=== PATIENT | male | born 1945 | race Caucasian/White ===

== ENCOUNTER 2017-01-20 23:59 | Emergency (ER) | payer MEDICARE ==
[2017-01-21] MEDS ORDERED: OXYMETAZOLINE NASAL SPRAY 15 ML BTTL ONE (00:11)
[2017-01-21] MEDS ORDERED: NEOMYCIN-BACITRACIN-POLYMYXIN 0.9 GM UD TOP ONE ×2 (00:11→00:15)
[2017-01-21 00:25] VITALS: TEMP 98.4; O2SAT 95
--- NOTE | 2017-01-21 00:40 | ED.PDOC ---
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 SPONTANEOUS. TAKES PLAVIX FOR CARDIAC STENTS. BLED 4 D AGO BUT STOPPED. USES DAILY NASAL SALINE GEL AND HUMIDIFIER. HAD BLEED 1 YR AGO, ER USED RHINO ROCKET, REMOVED AFTER 12 HRS, REBLED THUS NEEDED TO REINSERT RHINO ROCKET. THEN SAW ENT WHO CAUTERIZED AND RECOMMENDED FUTURE RHINO ROCKETS FOR HIM TO BE KEPT IN AT LEAST 24 HRS. - History of Present Illness Timing/Duration: abrupt Severity: moderate EENT Location: nose - L NARE Prearrival Treatment: squeezing nostrils Associated Symptoms: denies symptoms Allergies/Adverse Reactions: Allergies NO KNOWN ALLERGY Allergy (Verified 01/21/17 00:25) Home Medications: Ambulatory Orders Amlodipine Besylate-Atorvastat [Amlodipine Besylate/Atorv 5-20 mg] 1 tab PO Amoxicillin & Pot Clavulanate [Augmentin] 875 mg PO BID #14 tab 05/30/15 Bilberry 05/30/15 Clopidogrel Bisulfate [Plavix] 75 mg PO QD 05/30/15 Co Q-10 05/30/15 Folate-Vitamin [id number]-[id number] F 05/30/15 Grape Seed [Grape Seed Extract] 05/30/15 Isosorbide Mononitrate [Isosorbide Mononitrate ER] 05/30/15 Levothyroxine Sodium [Levoxyl] 100 mcg PO 05/30/15 Linaclotide [Linzess] 145 mcg PO 05/30/15 Lutein 20 mg PO 05/30/15 Metoprolol Tartrate 05/30/15 Resveratrol 05/30/15 Tamsulosin [Flomax] 05/30/15 hydrALAZINE HCl [HydrALAzine HCl] 05/30/15 Review of Systems - Review of Systems Constitutional: States: no symptoms reported EENTM: Denies: ear pain, throat pain Respiratory: States: no symptoms reported Cardiology: States: no symptoms reported Gastrointestinal/Abdominal: States: no symptoms reported Genitourinary: States: no symptoms reported Musculoskeletal: States: no symptoms reported Skin: States: no symptoms reported Neurological: States: no symptoms reported, emotional problems Hematologic/Lymphatic: States: no symptoms reported All other Systems: Reviewed and Negative Past Medical History (General) - Patient Medical History Hx Cardiac Disorders: Yes - stents Hx Hypertension: Yes Hx Thyroid Disease: Yes Hx Diabetes: No Hx Cancer: No Hx Hepatitis C: No Surgical History: other - Vaccination History Hx Tetanus, Diphtheria Vaccination: Yes - 2015 Hx Influenza Vaccination: Yes Hx Pneumococcal Vaccination: Yes - Social History Hx Tobacco Use: No Hx Alcohol Use: Yes - daily Hx Substance Use: No Hx Substance Use Treatment: No Hx Depression: No Hx Physical Abuse: No Hx Emotional Abuse: No Hx Suspected Abuse: No Family Medical History - Family History Father Family History: Unknown Physical Exam - Physical Exam General Appearance: Alert, Well Nourished Eye Exam: bilateral normal Ear Exam: bilateral ear: TM normal Nasal Exam: dried blood, other - L NASAL SEPTUM (KEISSELBACH'S PLEXUS) = FRESH, DRYING BLOOD BUT NOT ACTIVELY RUNNING. R NARE NL. Throat Exam: normal mouth inspection, pharynx normal, other - NO BLOOD DOWN POSTERIOR OROPHARYNX. 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 RE-EXAMINATION SHOWED THE PREVIOUSLY WET BLOOD TO BE QUITE DRY. I APPLIED A THIN LAYER OF POLYSPORIN TO MOISTURIZE THE SEPTUM. NO BLEEDING AT PRESENT, THUS WILL OBSERVE FOR 15 MIN TO ENSURE DOES NOT RESUME. 01/21/17 00:53 NO RECURRENCE OF EPISTAXIS AFTER OBSERVATION. DC TO HOME. Departure - Departure Clinical Impression: Anterior epistaxis Disposition: Discharge to Home or Self Care Condition: Fair Departure Forms: ED Discharge - Pt. Copy, Patient Portal Self Enrollment Instructions: DI for Nosebleed Diet: resume usual diet Activity: increase activity as tolerated Home Medications: Ambulatory Orders Amlodipine Besylate-Atorvastat [Amlodipine Besylate/Atorv 5-20 mg] 1 tab PO Amoxicillin & Pot Clavulanate [Augmentin] 875 mg PO BID #14 tab 05/30/15 Bilberry 07/29/15 Clopidogrel Bisulfate [Plavix] 75 mg PO QD 05/30/15 Co Q-10 05/30/15 Folate-Vitamin V50-Pafrykhpi F 05/30/15 Grape Seed [Grape Seed Extract] 05/30/15 Isosorbide Mononitrate [Isosorbide Mononitrate ER] 05/30/15 Levothyroxine Sodium [Levoxyl] 100 mcg PO 05/30/15 Linaclotide [Linzess] 145 mcg PO 05/30/15 Lutein 20 mg PO 05/30/15 Metoprolol Tartrate 05/30/15 Resveratrol 05/30/15 Tamsulosin [Flomax] 05/30/15 hydrALAZINE HCl [HydrALAzine HCl] 05/30/15 Additional Instructions: Use Afrin (decongestant) nasal spray only for emergencies when you start bleeding, as it can become habit forming to the nose. Daily apply a thin layer of bacitracin ointment using your finger to the left septum (middle side of the nose) to keep the area moist during the winter time. Avoid blowing your nose tonight, as this can dislodge the clots and trigger the bleeding. Continue using saline nasal spray and humidifier. If the bleeding reccurs, please see your ENT or return to the ER, at which time we will insert a Rhino Rocket. Please follow-up with your regular doctor, as elevated blood pressure also triggers bleeding.
[2017-01-21 01:03] VITALS: BP 141/78
== END 2017-01-21 01:03 | disposition home or self-care (01) ==
LOC: ER 23:59
DX: R04.0 Epistaxis (principal); I10 Essential (primary) hypertension; E07.9 Disorder of thyroid, unspecified; Z98.61 Coronary angioplasty status; Z79.899 Other long term (current) drug therapy

== ENCOUNTER → 2018-01-27 | Outpatient (CLI) | payer MEDICARE | LOC: LAB.O 13:10 | PROVIDERS: ATTEND Internal Medicine Nephrology | DX: N18.3 Chronic kidney disease, stage 3 (moderate) (principal) ==

== ENCOUNTER → 2018-02-22 | Outpatient (CLI) | payer MEDICARE ==
--- NOTE | 2018-02-23 11:13 | US ---
EXAM DESCRIPTION: Carotid Duplex CLINICAL HISTORY: BRUIT OF LEFT CAROTID ARTERY COMPARISON: None Available. TECHNIQUE: Carotid Doppler ultrasound FINDINGS: Right Submitted images show no significant stenosis in the common carotid, internal carotid or external carotid arteries. Calcified plaque is seen in the right CCA with mild tortuosity. Extensive plaque of the right carotid bifurcation. Axial images show 27% area narrowing of the right ICA above the bulb. The following flow velocities were obtained: Common carotid artery peak systolic flow velocity measures 65 centimeters per second. Internal carotid artery peak systolic flow velocity measures 73 centimeters per second. External carotid artery peak systolic flow velocity measures 66 centimeters per second. Flow in the right vertebral artery is antegrade. The right internal carotid to common carotid peak systolic flow velocity ratio equals 1.1 which is normal. Left Submitted images show normal caliber of the left common carotid, internal carotid and external carotid arteries with no significant stenosis. Calcified plaque is seen at the left carotid bifurcation. Axial images show 28% area narrowing of the carotid bulb. The following flow velocities were obtained: Common carotid artery peak systolic flow velocity measures 68 centimeters per second. Internal carotid artery peak systolic flow velocity measures 63 centimeters per second. External carotid artery peak systolic flow velocity measures 82 centimeters per second. Flow in the left vertebral artery is antegrade. The left internal carotid to common carotid peak systolic flow velocity ratio of 0.9 is normal. IMPRESSION: Calcified arteriosclerotic plaque at the carotid bifurcations bilaterally. No significant elevation of flow velocities to suggest hemodynamically significant stenosis. Electronically signed by: Robby Hernandez MD 02/23/2018 11:12 AM CDT
== END ==
LOC: US 11:02
PROVIDERS: ATTEND Family Medicine Geriatric Medicine
DX: R09.89 Other specified symptoms and signs involving the circulatory and respiratory systems (principal)

== ENCOUNTER → 2018-07-19 | Outpatient (CLI) | payer MEDICARE ==
--- NOTE | 2018-07-19 11:11 | US ---
EXAM DESCRIPTION: Aorta CLINICAL HISTORY: 73 years Male, I71.4 AAA COMPARISON: None. FINDINGS: Distal aortic diameter measures 2.3 cm. Right common iliac artery measures 1.3 cm which is prominent. Left common iliac artery measures 1.2 cm. Positive color flow within the distal aorta. Mid abdominal aorta is enlarged measuring 5.2 cm in diameter consistent with an abdominal aortic aneurysm, probably infrarenal. Bowel gas obscures the upper abdominal aorta and the upper portion of the aneurysm. A transverse image shows measurements of 5.2 x 6.7 cm. This is a large aneurysm and surgical consultation is recommended. Imaging follow-up every six months is also recommended. No fluid around the aorta to suggest a leaking aneurysm. Exam was limited to the aorta and proximal common iliac arteries. IMPRESSION: Abdominal aortic aneurysm 5.2 cm in diameter. Recommend vascular consultation and imaging follow-up every 6 months. (Reference: J Vasc Surg 2009 Oct;50(4 Suppl):S2-49.) Electronically signed by: Robby Hernandez MD 07/19/2018 11:10 AM CDT
== END ==
LOC: US 09:53
PROVIDERS: ATTEND Family Medicine Geriatric Medicine
DX: I71.4 Abdominal aortic aneurysm, without rupture (principal)

== ENCOUNTER → 2018-08-13 | Outpatient (CLI) | payer MEDICARE | LOC: LAB.O 10:50 | PROVIDERS: ATTEND Internal Medicine Nephrology | DX: E11.22 Type 2 diabetes mellitus with diabetic chronic kidney disease (principal) ==

== ENCOUNTER → 2019-02-15 | Outpatient (CLI) | payer MEDICARE | LOC: GMA 10:47 | PROVIDERS: ATTEND Internal Medicine Nephrology | DX: N18.3 Chronic kidney disease, stage 3 (moderate) (principal) ==

== ENCOUNTER → 2019-03-07 | Outpatient (CLI) | payer MEDICARE | LOC: GMAM 11:41 | PROVIDERS: ATTEND Family Medicine | DX: E03.9 Hypothyroidism, unspecified (principal) ==

== ENCOUNTER → 2019-04-14 | Outpatient (CLI) | payer MEDICARE ==
--- NOTE | 2019-04-14 12:55 | US ---
EXAM DESCRIPTION: Carotid Duplex: ULTRASOUND. CLINICAL HISTORY: 74 years Male CAROTID BRUIT COMPARISON: Ultrasound carotid duplex 02/22/2018.. TECHNIQUE: Transcutaneous scanning utilizing acstillo-scale and Doppler modes to evaluate the bilateral carotid systems and vertebral arteries. Percentage of diameter of stenosis or no stenosis recorded will be based upon NASCET criteria. FINDINGS: Peak systolic/end diastolic (CM-Sec) CCA Right 50/10 Left 55/12. ICA Right proximal 51/16, mid 48/18. Left proximal 31/10, mid 51/15. Vertebral Right not visualized Left 34/10. ECA (PS Only) Right 58 left 57. ICA/CCA peak systolic ratio: Right 1.0 Left 0.9 ICA/CCA end diastolic ratio: Right 1.5 Left 1.3 Vertebral arteries: antegrade flow. Left only. Right vertebral artery not visualized. Comments: Atherosclerotic hard plaque in the common carotid bulb bilaterally. Bilateral spectral broadening in the proximal ICAs. Bilateral diameter and area stenosis in the proximal ICA and distal bulbs less than 30%. IMPRESSION: 1. Doppler evaluation of the bilateral carotid systems and vertebral arteries shows no hemodynamically significant stenoses. 2. Minimal to moderate amount plaque seen in the carotid arteries bilaterally. Bilateral vertebral arteries showed antegrade-cephalad flow. 3. Stable since the prior study January 2018 Electronically signed by: Vimal Cummings MD 04/14/2019 12:53 PM CDT
== END ==
LOC: US 09:00
PROVIDERS: ATTEND Family Medicine
DX: I65.23 Occlusion and stenosis of bilateral carotid arteries (principal)

== ENCOUNTER 2019-06-20 00:32 | Emergency (ER) | payer MEDICARE ==
[2019-06-20 00:57] VITALS: O2SAT 97
[2019-06-20] MEDS ORDERED: OXYMETAZOLINE NASAL SPRAY 15 ML BTTL ONE (01:14)
--- NOTE | 2019-06-20 01:21 | ED.PDOC ---
History of Present Illness - General Chief Complaint: ENT Problem Stated Complaint: nose bleed Time Seen by Provider: 06/20/19 00:51 Source: patient, Vital Signs reviewed Exam Limitations: no limitations - History of Present Illness Initial Comments: Nose bleed from left nare only starting about 2 hrs ago. Last episode in 2014. No recent trauma or URI symptoms. No other abnml bleeding. Takes Plavix & fluticasone. Timing/Duration: abrupt, this evening Severity: moderate EENT Location: nose Prearrival Treatment: over the counter meds, squeezing nostrils Worsening Factors: nothing Associated Symptoms: denies symptoms Allergies/Adverse Reactions: Allergies NO KNOWN ALLERGY Allergy (Verified 01/21/17 00:25) Home Medications: Ambulatory Orders Bilberry 375 mg PO DAILY 05/30/15 Co Q-10 PO DAILY 05/30/15 Folate-Vitamin D93-Rjxhzvotb F 1,000 mg PO DAILY 05/30/15 RX: Amlodipine Besylate-Atorvastat 80 mg PO DAILY 05/30/15 RX: Clopidogrel Bisulfate [Plavix] 75 mg PO QD 05/30/15 RX: Grape Seed [Grape Seed Extract] 100 mg PO BID 05/30/15 RX: Isosorbide Mononitrate [Isosorbide Mononitrate ER] 60 mg PO DAILY 05/30/15 RX: Levothyroxine Sodium [Levoxyl] 100 mcg PO DAILY 05/30/15 RX: Lutein 20 mg PO DAILY 05/30/15 RX: Tamsulosin [Flomax] 0.4 mg PO DAILY 05/30/15 RX: hydrALAZINE HCl [HydrALAzine HCl] 25 mg PO BID 05/30/15 Resveratrol 500 mg PO DAILY 05/30/15 Aspirin [Baby Aspirin] 81 mg PO DAILY 01/21/17 Atorvastatin Calcium [Lipitor] 80 mg PO DAILY 01/21/17 B-Complex Vitamins [B Complex] 1 cap PO DAILY 01/21/17 Magnesium [Magnesium 250 mg] 1 tab PO DAILY 01/21/17 Nitroglycerin [Nitrostat] 0.4 mg SL PRN 01/21/17 [place]-3 Fatty Acids [Fish Oil] 1,000 mg PO DAILY 01/21/17 RX: Glimepiride 1 mg PO DAILY 01/21/17 Cephalexin Monohydrate [Keflex] 500 mg PO Q8H #9 cap 06/20/19 Metoprolol Succinate [Metoprolol Succinate ER] 50 mg PO BID 06/20/19 Review of Systems - Review of Systems Constitutional: States: no symptoms reported EENTM: States: see HPI Respiratory: States: no symptoms reported Cardiology: States: no symptoms reported Gastrointestinal/Abdominal: States: no symptoms reported Skin: States: no symptoms reported Neurological: States: no symptoms reported Hematologic/Lymphatic: States: no symptoms reported Past Medical History (General) - Patient Medical History Hx Cardiac Disorders: Yes - stents Hx Hypertension: Yes Hx Thyroid Disease: Yes Hx Diabetes: Yes Hx Cancer: No Hx Hepatitis C: No Surgical History: coronary bypass surgery - Vaccination History Hx Tetanus, Diphtheria Vaccination: Yes - 2014 Hx Influenza Vaccination: Yes Hx Pneumococcal Vaccination: Yes - Social History Hx Tobacco Use: No Hx Alcohol Use: Yes - daily Hx Substance Use: No Hx Substance Use Treatment: No Hx Depression: No Hx Physical Abuse: No Hx Emotional Abuse: No Hx Suspected Abuse: No Family Medical History - Family History Father Family History: Unknown Physical Exam - Physical Exam General Appearance: Alert, Comfortable, No apparent distress Nasal Exam: dried blood Throat Exam: pharynx normal Neck: full range of motion, supple Neurologic: alert, normal mood/affect, oriented x 3 Skin Exam: normal color, warm/dry Progress - Progress Progress: 06/20/19 05:45 Continued to have mild bleeding despite Afrin & a nasal clamp. Rhino Rocket was placed with good effect. He has an ENT doctor he sees regularly & will call her to remove it. We discussed empiric abx & he prefers to have them. Balloon placement (Rhino Rocket): size 4 left nare lubricated with water inserted without difficulty 4 ml of air to the yard pilot balloon - tolerated well bleeding stopped 06/20/19 05:46 06/20/19 05:47 Departure - Departure Clinical Impression: Epistaxis Time of Disposition: 02:13 Disposition: Discharge to Home or Self Care Condition: Excellent Departure Forms: ED Discharge - Pt. Copy, Patient Portal Self Enrollment Instructions: Nosebleeds (DC) Prescriptions: Cephalexin Monohydrate [Keflex] 500 mg PO Q8H #9 cap Home Medications: Ambulatory Orders Bilberry 375 mg PO DAILY 05/30/15 Co Q-10 PO DAILY 05/30/15 Folate-Vitamin W28-Lsmewlafp F 1,000 mg PO DAILY 05/30/15 RX: Amlodipine Besylate-Atorvastat 80 mg PO DAILY 05/30/15 RX: Clopidogrel Bisulfate [Plavix] 75 mg PO QD 05/30/15 RX: Grape Seed [Grape Seed Extract] 100 mg PO BID 05/30/15 RX: Isosorbide Mononitrate [Isosorbide Mononitrate ER] 60 mg PO DAILY 05/30/15 RX: Levothyroxine Sodium [Levoxyl] 100 mcg PO DAILY 05/30/15 RX: Lutein 20 mg PO DAILY 05/30/15 RX: Tamsulosin [Flomax] 0.4 mg PO DAILY 05/30/15 RX: hydrALAZINE HCl [HydrALAzine HCl] 25 mg PO BID 05/30/15 Resveratrol 500 mg PO DAILY 05/30/15 Aspirin [Baby Aspirin] 81 mg PO DAILY 01/21/17 Atorvastatin Calcium [Lipitor] 80 mg PO DAILY 01/21/17 B-Complex Vitamins [B Complex] 1 cap PO DAILY 01/21/17 Magnesium [Magnesium 250 mg] 1 tab PO DAILY 01/21/17 Nitroglycerin [Nitrostat] 0.4 mg SL PRN 01/21/17 [place]-3 Fatty Acids [Fish Oil] 1,000 mg PO DAILY 01/21/17 RX: Glimepiride 1 mg PO DAILY 01/21/17 Cephalexin Monohydrate [Keflex] 500 mg PO Q8H #9 cap 06/20/19 Metoprolol Succinate [Metoprolol Succinate ER] 50 mg PO BID 06/20/19 Additional Instructions: follow up with your ENT doctor on Thursday or Thursday
[2019-06-20 02:23] VITALS: BP 141/71; TEMP 97.1
== END 2019-06-20 02:23 | disposition home or self-care (01) ==
LOC: ER 00:32
DX: R04.0 Epistaxis (principal); E11.9 Type 2 diabetes mellitus without complications; I10 Essential (primary) hypertension; E07.9 Disorder of thyroid, unspecified; Z95.5 Presence of coronary angioplasty implant and graft; Z79.02 Long term (current) use of antithrombotics/antiplatelets; Z79.899 Other long term (current) drug therapy; Z79.82 Long term (current) use of aspirin

== ENCOUNTER → 2019-09-06 | Outpatient (CLI) | payer MEDICARE | LOC: LAB.O 10:49 | PROVIDERS: ATTEND Internal Medicine Nephrology | DX: N18.3 Chronic kidney disease, stage 3 (moderate) (principal) ==

== ENCOUNTER → 2020-03-07 | Outpatient (CLI) | payer MEDICARE | LOC: LAB.O 09:12 | PROVIDERS: ATTEND Internal Medicine Nephrology | DX: E11.22 Type 2 diabetes mellitus with diabetic chronic kidney disease (principal) ==

== ENCOUNTER → 2020-05-23 | Outpatient (CLI) | payer MEDICARE | LOC: LAB.O 09:23 | PROVIDERS: ATTEND Family Medicine | DX: I10 Essential (primary) hypertension (principal); E03.9 Hypothyroidism, unspecified; E78.2 Mixed hyperlipidemia; E11.22 Type 2 diabetes mellitus with diabetic chronic kidney disease ==

== ENCOUNTER → 2020-06-04 | Outpatient (CLI) | payer MEDICARE | LOC: GMAM 10:52 | PROVIDERS: ATTEND Family Medicine | DX: R97.20 Elevated prostate specific antigen [PSA] (principal) ==

== ENCOUNTER → 2020-10-02 | Outpatient (CLI) | payer MEDICARE | LOC: LAB.O 11:13 | PROVIDERS: ATTEND Internal Medicine Nephrology | DX: E11.22 Type 2 diabetes mellitus with diabetic chronic kidney disease (principal) ==